=== PATIENT | male | born 1935 | race Caucasian/White ===

== ENCOUNTER 2019-08-13 12:31 | Emergency (ER) | payer MEDICARE, BC ==
[~2019-08-13] VITALS: Ht 157.5 cm; Wt 63.5 kg
[2019-08-13] MEDS ORDERED: ALFU10TA PO (12:45)
--- NOTE | 2019-08-13 12:59 | NUR ---
UROLOGY CART OUTSIDE ROOM
[2019-08-13] MEDS ORDERED: LIDOCAINE 2%,20 ML JEL.PF.APP MM ONE ×2 (13:00→13:40)
--- NOTE | 2019-08-13 13:00 | NUR ---
TERRENCE SALAZAR FROM [facility]. DX URINARY RETENTION. PT NOT VOIDED IN OVER 12 HRS. MULTIPLE UNSUCCESSFUL ATTEMPTS TO PLACE BAEZ. PT TRANSERRED FOR UROLOGY. 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 TOTALL 200MCG FENT, LAST DOSE FENT 50MCG 1140. PT CONNECTED TO MONITORING. CALL LIGHT IN REACH. DAUGHTER AT BEDSIDE. BLADDER SCAN SHOWS [phone]. PROVIDER AWARE. AWAITING UROLOGY FOR ASSESSMENT.
--- NOTE | 2019-08-13 13:23 | NUR ---
PT AND DAUGHTER ARE REFUSING THIS RN TO ATTEMPT TO PLACE INDWELLING BAEZ. "THEY'VE ALREADY TRIED AT THE OTHER HOSPITAL, WE WANT THE UROLOGIST TO DO IT". PROVIDER AWARE.
[2019-08-13] MEDS ORDERED: PLEASE ENTER ALLERGIES MC SCH (13:30)
[2019-08-13] MEDS ORDERED: MORPHINE SULFATE 4 MG/ML, 1ML ONE ×2 (13:45→14:35)
[2019-08-13 13:51] VITALS: BP 152/86
--- NOTE | 2019-08-13 14:38 | NUR ---
UROLOGY AT BEDSIDE FOR CYSTOSCOPY AND POSSIBLE STRICTURE DILATION. CONSENT SIGNED.
[2019-08-13] MEDS ORDERED: SODIUM CHLORIDE 0.9% 1,000ML IVBOLUS ONE (15:30)
--- NOTE | 2019-08-13 15:34 | NUR ---
DR DEMPSEY COMPLETED CYSTOSCOPY AND STRICTURE DILATION. 18F INDWELLING BAEZ PLACED AND DRAINING BLOODY URINE. PT TOLERATED WELL. RECEIVED ORDER FOR 1L NS IV AND 4MG MORPHINE IV. MEDS ADMIN PER APR. PT RESTING COMFORTABLY ON RMENDON. NADN. DAUGHTER AT BEDSIDE.
--- NOTE | 2019-08-13 15:36 | NUR ---
PER PROVIDER, OK TO CANCEL UA.
[2019-08-13] MEDS ORDERED: MORPHINE SULFATE 4 MG/ML, 1ML IVPush ONE (16:00)
--- NOTE | 2019-08-13 16:53 | NUR ---
PT CATHATER FLUSHED WITH STERILE NS UNTIL DRAINAGE BARELY TINGED WITH PINK. PT TOLERATED WELL.
== END 2019-08-13 17:26 | disposition home or self-care (01) ==
LOC: ED 14:56
DX: N40.1 Benign prostatic hyperplasia with lower urinary tract symptoms (principal); R33.8 Other retention of urine
CPT/HCPCS: 51702; 96374; 99284; J2270; J7030